=== PATIENT | male | born 1990 | race Caucasian/White ===

== ENCOUNTER 2024-07-10 11:47 | Emergency (ER) | payer SELFPAY ==
[~2024-07-10] VITALS: Ht 154.9 cm; Wt 55.0 kg
== END 2024-07-10 11:53 ==
LOC: EDBD 11:47 → ER 11:47
DX: I46.9 Cardiac arrest, cause unspecified (principal); F17.200 Nicotine dependence, unspecified, uncomplicated; Z88.1 Allergy status to other antibiotic agents; Z88.8 Allergy status to other drugs, medicaments and biological substances; Z88.0 Allergy status to penicillin
CPT/HCPCS: 31500; 92950